=== PATIENT | female | born 1935 | race Caucasian/White ===

== ENCOUNTER 2020-12-08 17:57 | Emergency (ER) | payer MEDICARE, OTHER ==
[~2020-12-08] VITALS: Ht 160 cm; Wt 64.5 kg
[2020-12-08 18:13] VITALS: TEMP 97.7
[2020-12-08 18:35] LABS: COLLECTION METHOD CLEAN CATCH
[2020-12-08 18:49] LABS: PH 7 (5-8); SQUAMOUS EPITHELIAL 0-2 /hpf; URINE APPEARANCE Hazy; URINE BACTERIA Rare /hpf; URINE BILIRUBIN Negative (NEGATIVE); URINE BLOOD 3+ (NEGATIVE); URINE COLOR Amber; URINE GLUCOSE Negative (NEGATIVE); URINE KETONE Negative (NEGATIVE); URINE LEUKOCYTE ESTERASE 3+ (NEGATIVE); URINE NITRATE Positive (NEGATIVE); URINE PROTEIN(semi-quant) 1+ (NEGATIVE)
[2020-12-08 19:11] LABS: BASO % 0.3 % (0.0-2.0); GRAN # 12.4 (1.4-6.5); GRAN % 87.6 % (42.2-75.2); HEMATOCRIT 41.8 % (37.0-47.0); HEMOGLOBIN 14.2 g/dl (12.5-16.0); LYMPH # 0.9 (1.2-3.4); LYMPH % 6.1 % (20.0-51.0); MEAN CELL VOLUME 87 fl (80.0-100.0); MEAN CORPUSCULAR HEMOGLOBIN 30 pg (27.0-31.0); MEAN CORPUSCULAR HGB CONC 34 g/dl (33.0-37.0); MEAN PLATELET VOLUME 9.4 fl (7.4-10.4); MONO # 0.8 (0.1-0.6); MONO % 5.6 % (1.7-9.3); PLATELET COUNT 285 K/mm3 (130-400); RED BLOOD COUNT 4.82 M/mm3 (4.10-5.30); REDCELL DISTRIBUTION WIDTH-CV 13.1 % (11.5-14.5)
[2020-12-08 19:31] LABS: ALBUMIN 4.1 gm/dL (3.4-4.8); BILIRUBIN,TOTAL 0.7 mg/dL (0.2-1.2); C-REACTIVE PROTEIN 2.1 mg/dL (0.00-0.50); CALCIUM 10.5 mg/dL (8.4-10.2); POTASSIUM 3.1 mmol/L (3.5-4.5); TOTAL PROTEIN 8.3 gm/dL (6.2-8.1)
[2020-12-08 19:36] LABS: TROPONIN-I 0.016 ng/mL (0.00-0.033)
[2020-12-08] MEDS ORDERED: CEFTIN 250250 MG/TAB PO (20:07)
[2020-12-08 21:02] VITALS: BP 172/75; PULSE 76
== END 2020-12-08 21:04 | disposition home or self-care (01) ==
LOC: COL.ER 17:57
PROVIDERS: Nurse Practitioner
DX: N39.0 Urinary tract infection, site not specified (principal); I10 Essential (primary) hypertension; Z88.2 Allergy status to sulfonamides
CPT/HCPCS: J0696; J7030